=== PATIENT | female | born 1940 | race Caucasian/White ===

== ENCOUNTER 2018-07-20 17:47 | Inpatient (IN) | payer OTHER, MEDICARE ==
[~2018-07-20] VITALS: Ht 167.6 cm; Wt 101.2 kg
--- NOTE | ~2018-07-20 | EKG ---
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 07/21/18 0841 0734 3 Yinka Olvera MD, FACC /EPI
--- NOTE | ~2018-07-20 | CATHLAB ---
[facility] [address] [place] [address] INVASIVE PROCEDURE REPORT Name: CLEVE CARDONA Room #: 218-P ADM IN M.R.#: [id number] Admission: 07/20/18 Attend Phys: Randy Cardona MD Discharge: Date of : 44 Date of Service: 07/22/18 1116 Report #: [id number] THIS REPORT FOR: //name// APPROVED REPORT Study performed: 07/21/2018 10:15:22 Patient Details Patient Status: In-Patient Room #: The patient is a 78 year-old female Event Personnel Clark Blount Literature Teacher, Evaristo Givens Mahmood, Amber Monitor, Tyrell Ruth RN national expansion recruiter Performed Art Access - R femoral artery* 38242 Initial Mod Sed Same Phys/QHP Gr5y [id number] Left Heart Cath w/or w/o Coronaries [id number] [facility] Hemostasis with Manual pressure Indication Chest pain Procedure Narrative The patient was brought urgently to the Cardiac Catheterization Laboratory and was prepped and draped in a sterile manner. The Right Groin^ was infiltrated with 1% Lidocaine subcutaneous anesthesia. A PINNACLE 4FR Sheath #[id number] sheath was inserted into the RFA^. Coronary angiography was performed using coronary diagnostic catheters. The right coronary system was accessed and visualized with a JR 4 catheter. The left coronary system was accessed and visualized with a JL 4 catheter. The left ventricle was accessed and visualized with a Pigtail catheter. Left ventricular/Aortic Valve gradient assessed via catheter pullback. Hemostasis was obtained with manual pressure following sheath removal without any complications. The patient tolerated the procedure well and there were no complications associated with the procedure. There was no hematoma. Intraoperative Conscious Sedation Sedation start time: 10:32 Case end Time: 11:00 Versed 2 mg Fluoro Time: 1.20 minutes Dose: DAP 2483.00 cGycm2 360 mGy [facility] [place] [address] INVASIVE PROCEDURE REPORT Name: CLEVE CARDONA Room #: 218-P [facility].#: [id number] Admission: 07/20/18 Attend Phys: Randy Cardona MD Discharge: Date of : 44 Date of Service: 07/22/18 1116 Report #: [id number] Contrast Type and Amount: Omnipaque 35 ml Coronary Angiography The patient's coronary anatomy is right dominant. Diagnostic Cath Left Main Normal origin and caliber trifurcates left anterior descending, ramus intermedius, and left circumflex. It is short in length free of high-grade disease LAD Small to moderate caliber type I vessel coursing the anterior interventricular sulcus giving rise to septal and diagonal branches free of high-grade disease Diagonal 1 Small-caliber vessel without significant stenotic lesions Circumflex Small to moderate caliber vessel coursing in the AV groove posteriorly giving rise to a small first marginal versus ramus intermedius it then continues on giving rise to a second branch which is small and then terminates in the posterior wall branch all of which are free of high-grade disease but are noted to be tortuous in its course OM1 Small-caliber vessel without significant stenosis OM2 Small to moderate caliber vessel without lesions noted Right Coronary Moderate caliber vessel of the superior origin with a finley's crook deformity proximally. There is luminal irregularities noted in this region as it courses in the AV groove giving rise to 2 right ventricular branches. Beyond the acute margin the vessel has moderate irregularities of less than 50% and at the crux of the heart gives rise to a posterior descending artery. The RCA proper continues as a small posterior wall branch which has a terminal bifurcation R PDA Small-caliber vessel of less than 1.5 mm in an diameter in diameter. There is a long region of 50% stenosis arising from its origin encompassing the proximal two thirds of the vessel at which point there is a total 95% or greater lesion noted. The vessel reconstitutes itself with slow flow beyond reaching its terminal third. Ramus Small-caliber vessel without significant obstructive lesions or irregularities present Left Ventriculography Left Ventriculography was not performed. Hemodynamics The aortic pressure is 141/77 mmHg with a mean of 102 mmHg. The left ventricular pressure is 175/6 mmHg with a mean of mmHg. The left ventricular end diastolic pressure is 24 mmHg. [facility] [address] [place] [address] INVASIVE PROCEDURE REPORT Name: CLEVE CARDONA Room #: 218-P [facility] IN M.R.#: [id number] Admission: 07/20/18 Attend Phys: Randy Cardona MD Discharge: Date of : 44 Date of Service: 07/22/18 1116 Report #: [id number] Conclusion 1. Coronary disease, single-vessel, high grade, in a diminutive RCA and PDA 2. Abnormal hemodynamics with elevated liver ventricular end-diastolic pressures Recommendations Cardiac Risk Reduction Program Agg[facility] Medical Therapy <ELECTRONICALLY SIGNED> By: Clark Blount MD 07/22/18 1116 15 15 Clrak Blount MD /INF
--- NOTE | ~2018-07-20 | EKG ---
[address] [address] ELECTROCARDIOGRAM REPORT Name: CLEVE CARDONA Room #: 218-[facility] IN M.R.#: [id number] Admission: 07/20/18 Attend Phys: Randy Cardona MD Discharge: 07/22/18 Date of : 44 Report #: [id number] THIS REPORT FOR: //name// [facility] ED Test Date: 2018-07-20 Test Time: 20:30:52 Pat Name: CLEVE CARDONA Department: Room: 218 Gender: F Admissions Assistant: ... : 1940 Requested By: Randy Cardona Order Number: [id number] MD: Bethel Nazario Measurements Intervals [place] Rate: 66 P: 49 [place]: 160 QRS: 37 QRSD: 89 T: 36 QT: 413 QTc: 433 Interpretive Statements Sinus rhythm Compared to ECG 10/25/2014 07:36:47 No significant change Electronically Signed On 07-26-2018 9:36:02 LAMINATE FLOOR INSTALLER by Bethel Nazario [email or web address] <ELECTRONICALLY SIGNED> By: Bethel Nazario MD 07/26/18 0936 29 2030 Bethel Nazario MD /CAMRON
[~2018-07-20 17:47] MED LIST: ALPRAZOLAM 0.0.25 M1 PO; ATORVASTATIN CA40 MG PO; BIOFREEZE118 ML; BUTALB-APAP-CA1 EACH PO; FLEXERIL PO; IBUPROFEN 600600 M1 PO; PROZAC10 MG PO; TOPROL XL50 MG PO; TYLENOL325 MG PO; aleve
[2018-07-20 17:55] VITALS: BP 156/76
[2018-07-20] MEDS ORDERED: KAPSPARGO SPRIN50 MG PO (18:46)
[2018-07-20] MEDS ORDERED: ZOCOR20 MG PO (18:47)
[2018-07-20] MEDS ORDERED: PROZAC20 MG PO (18:47)
[2018-07-20 19:21] LABS: HEMATOCRIT 39.2 % (37.0-47.0); HEMOGLOBIN 13.3 gm/dL (12.0-15.0); MCH 28.4 pg (26.0-34.0); MCHC 33.8 g/dL (28.0-37.0); MCV 84.1 fL (80.0-100.0); RBC 4.67 mil/uL (4.20-5.00); RDW 14.2 % (10.5-14.5); WBC 8.5 thou/uL (4.0-11.0)
[2018-07-20 19:32] LABS: CALCIUM 9.1 mg/dL (8.5-10.1); CREATININE 0.9 mg/dL (0.6-1.0); POTASSIUM 4.2 mmol/L (3.5-5.1)
[2018-07-20 23:20] VITALS: BP 139/74
[2018-07-21 05:50] VITALS: BP 129/70
[2018-07-21 06:34] LABS: HEMATOCRIT 39.2 % (37.0-47.0); MCHC 33.2 g/dL (28.0-37.0); MCV 84.3 fL (80.0-100.0); RBC 4.65 mil/uL (4.20-5.00); RDW 14.3 % (10.5-14.5); WBC 7.5 thou/uL (4.0-11.0)
[2018-07-21 06:52] LABS: CALCIUM 8.9 mg/dL (8.5-10.1); CREATININE 0.8 mg/dL (0.6-1.0); POTASSIUM 4.3 mmol/L (3.5-5.1)
[2018-07-21 06:59] LABS: TROPONIN-I 7.24 ng/mL (<0.06)
[2018-07-21 08:00] VITALS: BP 135/66
[2018-07-21 11:15] VITALS: BP 126/55; BP 126/69
[2018-07-21 11:49] VITALS: BP 116/56
[2018-07-21 15:39] VITALS: BP 103/44
[2018-07-21 22:00] VITALS: BP 107/56
[2018-07-22 04:34] LABS: HEMATOCRIT 34.9 % (37.0-47.0); HEMOGLOBIN 11.5 gm/dL (12.0-15.0); MCH 28.1 pg (26.0-34.0); MCHC 32.9 g/dL (28.0-37.0); MCV 85.7 fL (80.0-100.0); RBC 4.08 mil/uL (4.20-5.00); RDW 14.4 % (10.5-14.5); WBC 6.5 thou/uL (4.0-11.0)
[2018-07-22 04:47] LABS: CALCIUM 8.5 mg/dL (8.5-10.1); CREATININE 0.9 mg/dL (0.6-1.0); POTASSIUM 3.9 mmol/L (3.5-5.1)
[2018-07-22 05:00] LABS: TROPONIN-I 5.62 ng/mL (<0.06)
[2018-07-22 05:46] VITALS: BP 120/60
[2018-07-22 08:34] VITALS: BP 105/50
[2018-07-22] MEDS ORDERED: ASPIR 8181 MG PO (08:47)
[2018-07-22] MEDS ORDERED: IMDUR 60 MG TAB60 M1 PO (08:47)
[2018-07-22] MEDS ORDERED: TOPROL XL25 MG PO (08:47)
[2018-07-22] MEDS ORDERED: PLAVIX 75 MG TA75 M1 PO (08:47)
[2018-07-22 13:15] VITALS: BP 113/55
[2018-07-22 16:00] VITALS: BP 120/46
[2018-07-22 18:54] VITALS: BP 120/46
== END 2018-07-22 19:35 | disposition home or self-care (01) | DRG 280 ==
LOC: 2N 17:47
PROVIDERS: Hospitalist; Internal Medicine
PROC: 4A023N7 Measurement of Cardiac Sampling and Pressure, Left Heart, Percutaneous Approach (ICD-10-PCS; principal; 2018-07-22)
PROC: B2111ZZ Fluoroscopy of Multiple Coronary Arteries using Low Osmolar Contrast (ICD-10-PCS; principal; 2018-07-22)
DX: I21.4 Non-ST elevation (NSTEMI) myocardial infarction (principal); I50.33 Acute on chronic diastolic (congestive) heart failure; I10 Essential (primary) hypertension; E78.5 Hyperlipidemia, unspecified; M54.5 Low back pain; I25.10 Atherosclerotic heart disease of native coronary artery without angina pectoris; F41.9 Anxiety disorder, unspecified; F32.9 Major depressive disorder, single episode, unspecified; Z72.89 Other problems related to lifestyle; Z90.49 Acquired absence of other specified parts of digestive tract; Z87.01 Personal history of pneumonia (recurrent); Z79.899 Other long term (current) drug therapy; Z88.5 Allergy status to narcotic agent; Z88.8 Allergy status to other drugs, medicaments and biological substances
CPT/HCPCS: 10081